=== PATIENT | male | born 1935 | race Caucasian/White ===

== ENCOUNTER 2016-11-11 18:25 | Emergency (ER) | payer MEDICARE, OTHER ==
[2016-11-11] MEDS ORDERED: LACTATED RINGERS 1,000 ML ONE (18:51)
[2016-11-11 19:00] LABS: ABSOLUTE NEUTROPHIL COUNT 5.4 K/mm3 (1.8-7.7); BASO % 0.3 % (0.2-1.0); EOS # 0.1 (0.0-0.5); EOS % 1.5 % (0.9-2.9); HEMATOCRIT 39.3 % (32.0-52.0); HEMOGLOBIN 12.9 gm/l (14.0-18.0); IMM NEUT # 0.1 K/mm3 (0-0.2); IMM NEUT% 0.8 % (0-1); LYMPH # 2.4 (1.0-4.8); MEAN CELL VOLUME 89.7 fl (80.0-94.0); MEAN CORPUSCULAR HEMOGLOBIN 29.5 pg (27.0-31.0); MEAN CORPUSCULAR HGB CONC 32.8 g/dl (33.0-37.0); MONO # 0.7 (0.0-0.8); MONO % 7.5 % (4-12); NEUT % 61.9 % (43-75); PLATELET COUNT 174 K/mm3 (130-400); RED CELL DISTRIBUTION WIDTH 13.3 % (11.5-14.5)
[2016-11-11 19:16] LABS: URINE BILIRUBIN NEGATIVE (NEGATIVE); URINE BLOOD TRACE (NEGATIVE); URINE GLUCOSE (UA) NEGATIVE (NEGATIVE); URINE LEUKOCYTE ESTERASE 2+ (NEGATIVE); URINE NITRITE POSITIVE (NEGATIVE); URINE PROTEIN 1+ (NEGATIVE); URINE UROBILINOGEN NORMAL (0-1 mg/dl)
[2016-11-11 19:19] LABS: ALB/GLOB RATIO 1.3 (>1.0); CALCIUM 9.6 mg/dL (8.6-10.3)
[2016-11-11 19:24] LABS: URINE APPEARANCE CLOUDY; URINE COLOR YELLOW
[2016-11-11 19:30] LABS: URINE EPITHELIAL CELLS 0-1 /hpf; URINE RBC 0 /hpf; URINE WBC 80-100 /hpf
[2016-11-11 19:31] LABS: URINE BACTERIA 4+
--- NOTE | 2016-11-11 19:48 | CT ---
HEAD W/O CON COMPARISON: None HISTORY: Altered mental status. TECHNIQUE: Using a [employer] [address] scanner, images were obtained through the head. An automated dose reduction technique was used to minimize patient radiation dose. DOSE INFORMATION: CTDIvol (mGy): 51.70 DLP(mGycm): 990.60 FINDINGS: Mass: None Intracranial Hemorrhage: None Acute Infarction: None Cerebral hemispheres: Mild atrophy. Basal ganglia: Normal Thalami: Normal Brainstem: Normal Cerebellum: Normal Ventricles: Normal Basilar cisterns: Normal Corpus callosum: Normal Pituitary fossa: Normal Middle ears and mastoid air cells: Normal Orbits and sinuses: Normal Skull and scalp: Normal Dural sinuses and vessels: Normal IMPRESSION: Mild cerebral atrophy. No acute finding. The report was sent to the emergency department electronic medical record system 11/11/2016 at 19:49
[2016-11-11] MEDS ORDERED: CEFTRIAXONE SODIUM 1 G VIAL ONE (19:54)
[2016-11-11] MEDS ORDERED: SODIUM CHLORIDE 0.9% 50 ML IV ONE (19:54)
--- NOTE | 2016-11-11 19:59 | RAD ---
CHEST - 2 VIEWS COMPARISON: None. HISTORY: Altered mental status. FINDINGS: Views: Frontal and lateral chest Lungs: Low volume. Compressive atelectasis of the left lung base. Heart and vessels: Normal Trachea and bronchi: Normal Mediastinum and jennifer: Normal Costophrenic sulci: Normal Chest wall and bones: Normal. Upper abdomen: Surgical clips in the right upper quadrant. IMPRESSION: Poor respiratory effort with some compressive atelectasis in the left lung base.
== END 2016-11-11 20:57 | disposition home or self-care (01) ==
LOC: ED 18:25
DX: N39.0 Urinary tract infection, site not specified (principal); R01.1 Cardiac murmur, unspecified; E11.9 Type 2 diabetes mellitus without complications; Z79.899 Other long term (current) drug therapy
CPT/HCPCS: 83605; 85025; 87086; 80053; 84484; 81001; 71020; 70450; 99284 ×2; 96374; 93005; J0696; J7120; J7050